=== PATIENT | male | born 1960 | race Caucasian/White ===

== ENCOUNTER → 2016-03-16 | Outpatient (CLI) | payer BC | LOC: GMAB 15:06 | PROVIDERS: ATTEND Family Medicine | DX: Z00.01 Encounter for general adult medical examination with abnormal findings (principal) ==

== ENCOUNTER → 2016-03-17 | Outpatient (CLI) | payer BC ==
--- NOTE | 2016-03-17 08:59 | MRI ---
EXAM DESCRIPTION: MR BRAIN WITHOUT IV CONTRAST CLINICAL HISTORY: TIA tingling and numbness in the forehead and left fingers. Difficulty writing. COMPARISON: None. TECHNIQUE: Multiplanar, multi sequence MR images of the head are obtained without IV gadolinium contrast using standard imaging protocol. FINDINGS: The midline structures are not displaced. Sulci are age appropriate. The lateral, third, and fourth ventricles are normal in size, shape, and anatomic positioning. Normal vazquez-white differentiation is seen. Normal flow voids are seen in the major intracranial vessels including the dural venous sinuses. There is no evidence of mass, mass effect, hydrocephalus, or acute intracranial hemorrhage. No abnormal extra-axial fluid collections are seen. Two tiny 3 mm foci of increased FLAIR/ T2 signal in the periventricular white matter of the right frontal lobe are seen. Gradient echo images show no abnormal signal. The pituitary is unremarkable. Visualized paranasal sinuses are unremarkable. The visualized orbits and mastoid air cells are unremarkable. IMPRESSION: Overall unremarkable noncontrast MRI of the brain. Two tiny nonspecific foci of increased FLAIR/ T2 signal in the right frontal periventricular white matter are of indeterminate to likely no clinical significance. No MRI evidence of acute intracranial ischemia, mass, or mass effect. Electronically signed by: Osmar Castillo MD 03/17/2016 08:57
--- NOTE | 2016-03-17 09:39 | US ---
EXAM DESCRIPTION: US CAROTID DOPPLER BILATERAL CLINICAL HISTORY: TIA COMPARISON: None Available. TECHNIQUE: Color Doppler evaluation of the extracranial carotids FINDINGS: Right carotid: The right common carotid artery is unremarkable. No significant plaque is seen in the internal or external carotid arteries. Peak systolic velocity common carotid artery = 68 cm/s Peak systolic velocity internal carotid artery = 57 cm/s Peak systolic velocity external carotid artery = 54 cm/s ICA CCA ratio 0.8 Left carotid: No significant plaque is seen in the left common, internal, or external carotid arteries. Peak systolic velocity common carotid artery = 76 cm/s Peak systolic velocity internal carotid artery = 56 cm/s Peak systolic velocity external carotid artery = 63 cm/s ICA CCA ratio 0.7 Antegrade flow is seen in both vertebral arteries Normal flow velocities and waveforms are demonstrated bilaterally. IMPRESSION: No atherosclerotic involvement of the extracranial carotid arteries. No evidence of hemodynamically significant stenosis Electronically signed by: Osmar Castillo MD 03/17/2016 09:36
== END ==
LOC: MRI 08:00
PROVIDERS: ATTEND Family Medicine
DX: G45.9 Transient cerebral ischemic attack, unspecified (principal)